=== PATIENT | male | born 1990 | race Caucasian/White ===

== ENCOUNTER 2018-03-12 16:57 | Emergency (ER) | payer OTHER ==
[~2018-03-12] VITALS: Ht 180.3 cm; Wt 140.6 kg
[~2018-03-12 16:57] MED LIST: IBU600 MG PO
--- NOTE | 2018-03-12 17:25 | ED HAND/WRIST INJURY COMPLAINT ---
History of Present Illness General Chief Complaint: Hand or Wrist Injury Stated Complaint: R PINKY FINGER INJURY Source: patient Exam Limitations: no limitations Vital Signs & Intake/Output Vital Signs & Intake/Output Vital Signs Date Time Temp Pulse Resp B/P B/P Pulse O2 O2 Flow FiO2 Mean Ox Delivery Rate 03/12 1906 97.2 95 16 149/79 98 Room Air 03/12 1735 Room Air 03/12 1705 98.3 117 18 149/92 96 Room Air Allergies Coded Allergies: No Known Allergies (01/10/16) Reconcile Medications Ibuprofen (Ibu) 600 MG TAB 1 TAB PO TID PAIN/INFLAMMATION Triage Note: PT TO ER C/C RIGHT 5TH FINGER PAIN S/P JAMMING 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 Triage Nurses Notes Reviewed? yes HPI: Patient is a 27-year-old male who presents emergency department complaining of right fifth digit pain. Patient states him and another nael bumped into each other and he subsequently fell to the ground. He states his pinky finger was caught between a rock. Since then it has been swollen and he is unable to flex it completely. No previous injuries to this hand. He is right-hand dominant. Denies any numbness or tingling. (Yusuf Chapman PA-C) Past History Travel History Traveled to [place] past 21 day No Medical History Any Pertinent Medical History? 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 No (Yusuf Chapman PA-C) Review of Systems Review of Systems Constitutional: Reports: no symptoms. Respiratory: Reports: no symptoms. Cardiovascular: Reports: no symptoms. GI: Reports: no symptoms. Musculoskeletal: Reports: see HPI. Skin: Reports: no symptoms. Neurological/Psychological: Reports: no symptoms. All Other Systems: Reviewed and Negative (Yusuf Chapman PA-C) Physical Exam Physical Exam General Appearance: well developed/nourished, no apparent distress Head: atraumatic Eyes: Bilateral: PERRL, EOMI. Ears, Nose, Throat: normal pharynx, normal ENT inspection, hearing grossly normal Neck: normal inspection, supple Cardiovascular/Respiratory: normal breath sounds, regular rate/rhythm Back: normal inspection Wrist Left: normal range of motion, normal inspection Wrist Right: normal range of motion, normal inspection Hand Left: normal inspection, normal range of motion Hand Right: TTP over MCP and PIP joint of right 5th digit with swelling. He is able to slightly flex and fully extend. No obvious deformity. Distal sensation is intact. Normal cap refill. Skin: intact, normal color, warm/dry (Ari DIAZ,Yusuf) Progress Differential Diagnosis: contusion, compartment syndrome, dislocation, fracture, sprain, tenosynovitis Plan of Care: Orders Procedure Date/time Status XRY-HAND, 3 View RIGHT 03/12 1706 Active Diagnostic Imaging: Viewed by Me: Radiology Read. Discussed w/RAD: Radiology Read. Radiology Impression: PATIENT: SOHAM HOLDEN PRESENT AGE: 27 PATIENT ACCOUNT NO: [id number] : 92 LOCATION: [facility] ORDERING PHYSICIAN: Yusuf Chapman PA-C SERVICE DATE: 03/12/18-1705 EXAM TYPE: RAD - XRY -HAND, RIGHT EXAMINATION: XR HAND, RIGHT CLINICAL INFORMATION: Abnormal fifth finger injury COMPARISON: None TECHNIQUE: PA, lateral, and oblique views of the right hand. FINDINGS: The bones and soft tissues are normal. No fracture. Alignment is anatomic. Joint spaces are maintained. No erosions or soft tissue calcifications. IMPRESSION: No fracture. DICTATED BY: Andres Pappas MD DATE/ TIME DICTATED:03/12/181835 FEED MANAGEMENT ADVISOR:RANJEET DATE/TIME TRANSCRIBED: 03/12/181835 CONFIDENTIAL, DO NOT COPY WITHOUT APPROPRIATE AUTHORIZATION. < Electronically signed in Other Vendor System> SIGNED BY: Andres Pappas MD 03/12/18 1369 Comments: 27-year-old male with right little finger pain after falling directly onto the finger. Patient states it was initially bent to the side but he pulled it back into position. There is no fracture or dislocation seen on his x-ray. He is neurovascular intact on exam. Patient likely did dislocate his finger and reduced it prior to arrival. He will be placed in a splint for comfort. We will him follow-up with his primary care doctor in 3-4 days. Return immediately with any new worsening symptoms. He is in agreement with plan of care. (Yusuf Chapman PA-C) Departure Departure Disposition: HOME OR SELF CARE Condition: Stable Clinical Impression Primary Impression: Sprain of right little finger Qualifiers: Encounter type: initial encounter Sprain of finger site: metacarpophalangeal joint Qualified Code: S63.656A - Sprain of metacarpophalangeal joint of right little finger, initial encounter Referrals: Patient Has No Primary Care Dr (PCP/Family) Additional Instructions: Wear splint as needed. Take Motrin as needed for pain. Ice area frequently. Follow-up with your primary care doctor and return to emergency department with any new worsening symptoms. Departure Forms: Customer Survey General Discharge Information (Yusuf Chapman PA-C) PA/SUPERVISOR [employer]AR Co-Sign Statement Statement: ED Attending supervision documentation- [] I saw and evaluated the patient. I have also reviewed all the pertinent lab results and diagnostic results. I agree with the findings and the plan of care as documented in the PA's/SUPERVISOR [employer]AR's documentation. [x] I have reviewed the ED Record and agree with the PA's/SUPERVISOR P[employer]AR's documentation. [] Additions or exceptions (if any) to the PAs/SUPERVISOR POWDER[employer]GAR's note and plan are summarized below: [] (Derek BRADY,Mason Leiva)
--- NOTE | 2018-03-12 18:44 | RADIOLOGY REPORT ---
EXAMINATION: XR HAND, RIGHT CLINICAL INFORMATION: Abnormal fifth finger injury COMPARISON: None TECHNIQUE: PA, lateral, and oblique views of the right hand. FINDINGS: The bones and soft tissues are normal. No fracture. Alignment is anatomic. Joint spaces are maintained. No erosions or soft tissue calcifications. IMPRESSION: No fracture.
[2018-03-12 19:06] VITALS: BP 149/79
== END 2018-03-12 19:02 ==
LOC: ERH 16:57
DX: S63.616A Unspecified sprain of right little finger, initial encounter (principal); W03.XXXA Other fall on same level due to collision with another person, initial encounter; Y93.68 Activity, volleyball (beach) (court); Y92.9 Unspecified place or not applicable
CPT/HCPCS: 73130-RT